=== PATIENT | female | born 1945 | race Caucasian/White ===

== ENCOUNTER 2017-03-23 14:58 | Emergency (ER) | payer OTHER ==
[2017-03-23 15:48] LABS: BASOPHIL 0.3 % (0-2); EOSINOPHIL 1.6 % (0-7); HCT 40.2 % (37.0-47.0); HGB 13.5 g/dl (12.5-16.0); LYMPHOCYTE 15.3 % (15-48); MCH 35.4 pg (25.0-31.0); MCHC 33.6 g/dL (32.0-36.0); MCV 105.5 fL (78.0-100.0); MONOCYTE 9.6 % (0-12); MPV 10.2 fL (6.0-9.5); NEUTROPHIL 73.2 % (41-80); PLT 245 K/uL (150-400); RBC 3.81 M/uL (4.20-5.40)
[2017-03-23 16:07] LABS: ALBUMIN 3.7 g/dL (3.4-4.8); BILIRUBIN - TOTAL 0.3 mg/dL (0.1-1.0); CREATININE 1.2 mg/dL (0.5-1.0); POTASSIUM 4.4 mmol/L (3.5-5.1); TOTAL PROTEIN 6.7 g/dL (6.4-8.3)
== END 2017-03-23 18:08 | disposition home or self-care (01) ==
LOC: FER 14:58
PROVIDERS: Emergency Medicine
DX: S20.219A Contusion of unspecified front wall of thorax, initial encounter (principal); R10.84 Generalized abdominal pain; M79.601 Pain in right arm; I11.9 Hypertensive heart disease without heart failure; Z79.82 Long term (current) use of aspirin; Z79.899 Other long term (current) drug therapy; V49.50XA Passenger injured in collision with unspecified motor vehicles in traffic accident, initial encounter; Y92.410 Unspecified street and highway as the place of occurrence of the external cause
CPT/HCPCS: 36415; 71010; 80053; 85025; 93005

== ENCOUNTER 2017-03-25 09:55 | Emergency (ER) | payer OTHER ==
[2017-03-25 11:44] LABS: BASOPHIL 0.2 % (0-2); EOSINOPHIL 0.5 % (0-7); LYMPHOCYTE 7.1 % (15-48); MCH 35.3 pg (25.0-31.0); MCHC 32.5 g/dL (32.0-36.0); MCV 108.7 fL (78.0-100.0); MONOCYTE 6.4 % (0-12); MPV 10.5 fL (6.0-9.5); NEUTROPHIL 85.8 % (41-80); PLT 222 K/uL (150-400); RBC 3.68 M/uL (4.20-5.40); RDW 13.2 % (11.5-14.0); WBC 10.9 K/uL (4.0-10.5)
[2017-03-25 12:02] LABS: ALBUMIN 3.2 g/dL (3.4-4.8); BILIRUBIN - TOTAL 0.4 mg/dL (0.1-1.0); GLOBULIN (CALCULATION) 2.9 g/dL (2.2-4.2); TOTAL PROTEIN 6.1 g/dL (6.4-8.3)
== END 2017-03-25 13:03 | disposition home or self-care (01) ==
LOC: FER 09:55
PROVIDERS: Internal Medicine
DX: R11.10 Vomiting, unspecified (principal); R10.13 Epigastric pain; T39.1X5A Adverse effect of 4-Aminophenol derivatives, initial encounter; F17.210 Nicotine dependence, cigarettes, uncomplicated; Z87.442 Personal history of urinary calculi; Z95.1 Presence of aortocoronary bypass graft; Z79.899 Other long term (current) drug therapy
CPT/HCPCS: 36415; 70450; 71010; 80053; 83690; 85025; J1170; J2405

== ENCOUNTER 2017-03-26 10:07 | Day surgery (SDCO) | payer OTHER, MEDICARE ==
[~2017-03-26] VITALS: Ht 149.9 cm; Wt 49.6 kg
[2017-03-26 10:22] LABS: BILIRUBIN 1+ mg/dL (NEGATIVE); BLOOD NEGATIVE Ery/uL (NEGATIVE); CLARITY CLEAR (CLEAR); COLOR YELLOW (YELLOW); GLUCOSE (U) NORMAL (NORMAL); KETONE (U) NEGATIVE (NEGATIVE); LEUKOCYTES NEGATIVE Leu/uL (NEGATIVE); NITRITE NEGATIVE (NEGATIVE); PROTEIN TRACE (LOW) mg/dL (NEGATIVE); SPECIFIC GRAVITY 1.025 (1.001-1.030); UROBILINOGEN 0.2 mg/dL (0.2-1.0); pH 5.5 (5.0-9.0)
[2017-03-26 10:25] LABS: URINARY RBC RARE
[2017-03-26 10:33] LABS: AMPHETAMINES NEGATIVE (NEGATIVE); BARBITURATES NEGATIVE (NEGATIVE); BENZODIAZEPINES NEGATIVE (NEGATIVE); COCAINE NEGATIVE (NEGATIVE); MARIJUANA (THC) NEGATIVE (NEGATIVE); METHADONE NEGATIVE (NEGATIVE); TRICYCLIC ANTIDEPRESSANT NEGATIVE (NEGATIVE)
[2017-03-26 11:50] LABS: BASOPHIL 0.1 % (0-2); EOSINOPHIL 0.3 % (0-7); HCT 38.6 % (37.0-47.0); HGB 12.9 g/dl (12.5-16.0); LYMPHOCYTE 4.3 % (15-48); MCH 36.6 pg (25.0-31.0); MCHC 33.4 g/dL (32.0-36.0); MCV 109.7 fL (78.0-100.0); MONOCYTE 5.9 % (0-12); MPV 10.9 fL (6.0-9.5); NEUTROPHIL 89.4 % (41-80); PLT 255 K/uL (150-400); RBC 3.52 M/uL (4.20-5.40); RDW 13.2 % (11.5-14.0); WBC 18.3 K/uL (4.0-10.5)
[2017-03-26 12:06] LABS: ACETAMINOPHEN (TYLENOL) < 5.0 ug/mL (10.0-30.0); ALCOHOL (ETOH) MEDICAL NONE DETECTED
[2017-03-26 12:17] LABS: INR 1.23 (0.9-1.2); PROTHROMBIN TIME 14.6 SECONDS (11.4-13.2); PTT 25.2 SECONDS (24.3-32.1)
[2017-03-26 12:23] LABS: LACTIC ACID 0.9 mmol/L (0.5-2.2)
[2017-03-26 12:27] LABS: ALBUMIN 3.1 g/dL (3.4-4.8); BILIRUBIN - TOTAL 0.3 mg/dL (0.1-1.0); GLOBULIN (CALCULATION) 2.8 g/dL (2.2-4.2); POTASSIUM 4.1 mmol/L (3.5-5.1); TOTAL PROTEIN 5.9 g/dL (6.4-8.3)
[2017-03-27 05:48] LABS: BASOPHIL 0.4 % (0-2); EOSINOPHIL 1.5 % (0-7); HCT 35.4 % (37.0-47.0); HGB 11.7 g/dl (12.5-16.0); LYMPHOCYTE 14.2 % (15-48); MCH 35.6 pg (25.0-31.0); MCHC 33.1 g/dL (32.0-36.0); MCV 107.6 fL (78.0-100.0); MONOCYTE 9.3 % (0-12); MPV 10.6 fL (6.0-9.5); NEUTROPHIL 74.6 % (41-80); PLT 181 K/uL (150-400); RBC 3.29 M/uL (4.20-5.40); WBC 8.4 K/uL (4.0-10.5)
[2017-03-27 06:08] LABS: ALBUMIN 2.9 g/dL (3.4-4.8); BILIRUBIN - TOTAL 0.5 mg/dL (0.1-1.0); GLOBULIN (CALCULATION) 2.1 g/dL (2.2-4.2)
[2017-03-27] MEDS ORDERED: RANEXA500 MG PO (11:30)
[2017-03-27] MEDS ORDERED: PLAVIX75 MG PO (11:30)
[2017-03-27] MEDS ORDERED: ASPIRIN325 MG PO (11:30)
[2017-03-27] MEDS ORDERED: LOVASTATIN40 MG PO (11:31)
[2017-03-27] MEDS ORDERED: NITROQUIK SL0.4 MG SL (11:31)
== END 2017-03-27 11:39 | disposition home or self-care (01) ==
LOC: FER 10:07 → FTCU 13:51
PROVIDERS: Emergency Medicine; Nurse Practitioner; ADMIT Internal Medicine
DX: G92 Toxic encephalopathy (principal); I10 Essential (primary) hypertension; I25.10 Atherosclerotic heart disease of native coronary artery without angina pectoris; E78.5 Hyperlipidemia, unspecified; J44.9 Chronic obstructive pulmonary disease, unspecified; F17.290 Nicotine dependence, other tobacco product, uncomplicated; Z87.828 Personal history of other (healed) physical injury and trauma; Z79.82 Long term (current) use of aspirin; Z79.02 Long term (current) use of antithrombotics/antiplatelets; Z79.899 Other long term (current) drug therapy
CPT/HCPCS: 36415; 36600; 70450; 80053; 80305; 81001; 82803; 83605; 85025; 85610; 85730; 93005; G0378; G0480

== ENCOUNTER 2021-03-04 14:15 | Emergency (ER) | payer OTHER ==
[~2021-03-04 14:15] MED LIST: AMIODARONE HCL200 MG PO; ASPIRIN CHEWABL81 MG PO; ASPIRIN EC81 MG PO; ASPIRIN325 MG PO; CEFDINIR300 MG PO; IMDUR 30MG TABL30 MG PO; ISOSORBIDE MONO60 MG PO; KLOR-CON M 1010 MEQ PO; LASIX20 MG PO; LIPITOR40 MG PO; LIPITOR80 MG PO; LOPRESSOR25 MG PO; LOVASTATIN40 MG PO; METOPROLOL PO; NITRO-BID60 GM SL; NITROQUIK SL0.4 MG SL; NORVASC2.5 MG PO; PLAVIX75 MG PO; RANEXA500 MG PO; ROBAXIN500 MG PO; TOPROL XL 25MG25 MG PO; ULTRAM50 MG PO; UROCIT-K10 MEQ PO; ZOFRAN4 M1 PO
[2021-03-04 19:02] LABS: BILIRUBIN NEGATIVE (NEGATIVE); BLOOD NEGATIVE Ery/uL (NEGATIVE); CLARITY CLEAR (CLEAR); COLOR YELLOW (YELLOW); GLUCOSE (U) NORMAL (NORMAL); LEUKOCYTES NEGATIVE Leu/uL (NEGATIVE); NITRITE NEGATIVE (NEGATIVE); PROTEIN NEGATIVE (NEGATIVE); SPECIFIC GRAVITY 1.025 (1.001-1.030); UROBILINOGEN 0.2 mg/dL (0.2-1.0); pH 5.5 (5.0-9.0)
[2021-03-04 19:20] LABS: BASOPHIL 0.4 % (0-2); EOSINOPHIL 0.3 % (0-7); HCT 34.7 % (37.0-47.0); HGB 11.3 g/dl (12.5-16.0); LYMPHOCYTE 7.1 % (15-48); MCHC 32.6 g/dL (32.0-36.0); MCV 107.4 fL (78.0-100.0); MONOCYTE 4.1 % (0-12); MPV 11.5 fL (6.0-9.5); NEUTROPHIL 87.7 % (41-80); NRBC 0; PLT 213 K/uL (150-400); RBC 3.23 M/uL (4.20-5.40); RDW 14.8 % (11.5-14.0)
[2021-03-04 19:24] LABS: BUN/CREAT RATIO (CALC) 29.2 RATIO; CREATININE 1.71 mg/dL (0.51-0.95); POTASSIUM 5.2 mmol/L (3.5-5.1)
== END 2021-03-04 19:32 | disposition home or self-care (01) ==
LOC: FER 14:15
PROVIDERS: Nurse Practitioner Family
DX: B34.9 Viral infection, unspecified (principal); I10 Essential (primary) hypertension; Z20.822 Contact with and (suspected) exposure to COVID-19; Z87.19 Personal history of other diseases of the digestive system
CPT/HCPCS: 36415; 80048; 81003; 85025; 99284; U0002

== ENCOUNTER 2022-02-06 16:41 | Emergency (ER) | payer OTHER ==
[2022-02-06 20:12] LABS: BASOPHIL 0.5 % (0-2); EOSINOPHIL 2.6 % (0-7); HCT 32.8 % (37.0-47.0); HGB 10.5 g/dl (12.5-16.0); LYMPHOCYTE 8.1 % (15-48); MCV 109.3 fL (78.0-100.0); MONOCYTE 4.6 % (0-12); MPV 11.8 fL (6.0-9.5); NEUTROPHIL 83.9 % (41-80); NRBC 0; PLT 192 K/uL (150-400); RDW 13.8 % (11.5-14.0); WBC 11.5 K/uL (4.0-10.5)
[2022-02-06 20:20] LABS: BILIRUBIN NEGATIVE (NEGATIVE); BLOOD NEGATIVE Ery/uL (NEGATIVE); CLARITY CLEAR (CLEAR); COLOR YELLOW (YELLOW); GLUCOSE (U) NORMAL (NORMAL); LEUKOCYTES NEGATIVE Leu/uL (NEGATIVE); NITRITE NEGATIVE (NEGATIVE); PROTEIN NEGATIVE (NEGATIVE); UROBILINOGEN 0.2 mg/dL (0.2-1.0); pH 5.5 (5.0-9.0)
[2022-02-06 20:26] LABS: BACTERIA TRACE; SQUAMOUS EPITHELIAL CELLS RARE
[2022-02-06 20:38] LABS: ALBUMIN 3.7 g/dL (3.4-5.0); BILIRUBIN - TOTAL 0.4 mg/dL (0.2-1.0); BUN/CREAT RATIO (CALC) 31.8 RATIO; CREATININE 1.76 mg/dL (0.51-0.95); GLOBULIN (CALCULATION) 3.1 g/dL; POTASSIUM 5.7 mmol/L (3.5-5.1); TOTAL PROTEIN 6.8 g/dL (6.4-8.2)
[2022-02-06 22:48] LABS: BUN/CREAT RATIO (CALC) 32.7 RATIO; CREATININE 1.53 mg/dL (0.51-0.95); POTASSIUM 4.9 mmol/L (3.5-5.1)
== END 2022-02-06 23:13 | disposition home or self-care (01) ==
LOC: FER 16:41
PROVIDERS: Emergency Medicine
DX: T67.5XXA Heat exhaustion, unspecified, initial encounter (principal); R55 Syncope and collapse; E86.0 Dehydration; I10 Essential (primary) hypertension; F17.200 Nicotine dependence, unspecified, uncomplicated; Z91.011 Allergy to milk products; Z28.310 Unvaccinated for COVID-19
CPT/HCPCS: 36415; 80048; 80053; 81001; 84484; 85025; 93005; J7030